=== PATIENT | male | born 1955 | race Caucasian/White ===

== ENCOUNTER 2019-07-15 07:44 | Day surgery (SDC) | payer BC ==
--- NOTE | 2019-07-14 15:58 | RAD REPORT ---
EXAM DESCRIPTION: RAD - Chest Pa And Lat (2 Views) - 07/14/2019 3:42 pm CLINICAL HISTORY: preop, patient pending cardiac catheterization COMPARISON: None. TECHNIQUE: PA and lateral views of the chest were obtained. FINDINGS: The lungs are clear. Heart size is normal and central vasculature is within normal limit s. No pleural effusion or pneumothorax seen. No acute bony finding noted. No aortic abnormality. IMPRESSION: No acute cardiopulmonary process.
[2019-07-14 16:41] LABS: Absolute Lymphocytes (CBC) 1.2 K/uL (0.7-4.9); Basophils % 0.5 % (0-1.3); Hematocrit 46.2 % (39.6-49.0); Lymphocytes % 22.4 % (15.3-44.8); MPV 10.5 fL (7.6-11.3)
[2019-07-14 16:52] LABS: Protime INR 1.01
[2019-07-14 17:04] LABS: Potassium 4.6 mmol/L (3.5-5.1)
[~2019-07-15 07:44] MED LIST: FENTANYL CITR 100 MCG/2 ML ONE; LIDOCAINE 1% MPF 30 ML VIAL ONE; MIDAZOLAM HCL 2 MG/2 ML INJ ONE
--- OUTSIDE RECORDS SUMMARY | 2019-07-15 07:46 | XMS REPORT | Clinical Summary ---
:1955 Author Organization [facility] Address [address] [place] [address] Care Team Providers Name Role Phone Pete Garber MD Primary Care Provider Allergies Active Allergy Reactions Severity Noted Date Comments No Known Drug Allergies 05/22/2016 Medications Medication Sig Dispensed Refills Start Date End Date Status amlodipine-benazepril Take 1 capsule by 0 Active (LOTREL 5-20) 5-20 mg mouth daily. per capsule simvastatin (ZOCOR) 40 Take 40 mg by 0 Active MG tablet mouth nightly. LORAZepam (ATIVAN) 1 Take 1 mg by mouth 0 Active MG tablet every 6 (six) hours as needed for anxiety. ALPRAZolam (XANAX) 1 Take 1 mg by mouth 0 Active MG tablet nightly as needed for anxiety. Active Problems Problem Noted Date Complete tear or right rotator cuff 05/31/2016 Shoulder pain 05/22/2016 Subacromial impingement 05/22/2016 Full thickness rotator cuff tear 05/22/2016 Family History Medical History Relation Name Comments Cancer Brother Cancer Father Diabetes Father No Known Problems Mother Relation Name Status Comments Brother Father Mother Social History Tobacco Use Types Packs/Day Years Used Date Never Smoker Alcohol Use Drinks/Week oz/Week Comments Yes 1 Glasses of wine Sex Assigned at Date Recorded Not on file Job Start Date Occupation Industry Not on file Not on file Not on file Travel History Travel Start Travel End No recent travel history available. Last Filed Vital Signs Not on file Plan of Treatment Health Maintenance Due Date Last Done Comments COLONOSCOPY SCREENING 2003 SHINGLES VACCINES (#1) 2003 65+ PNEUMOCOCCAL VACCINE (1 of 2 - PCV13) 2018 INFLUENZA VACCINE 06/11/2019 Results Not on fileafter 07/14/2018 Advance Directives For more information, please contact: [phone] Type Date Recorded Patient Manager Garden Explanation Advance Directives, Living Will and Medical Power of Is Project Manager
[2019-07-15] MEDS ORDERED: NA CHLORIDE 0.9% 500 ML ONE (07:52)
[2019-07-15] MEDS ORDERED: HEPA 1000U/500MLS 2,000 UNIT/1,000 ML BAG IV ONE (08:29)
[2019-07-15] MEDS ORDERED: LIDOCAINE 1% MPF 30 ML VIAL ONE (08:29)
[2019-07-15] MEDS ORDERED: NITROGLYCERIN 100 MCG/ML SYR (for cath lab use only) IV ONE (08:52)
[2019-07-15] MEDS ORDERED: HEPARIN 5000 UNIT/ML 1 ML VIAL ONE (08:52)
[2019-07-15] MEDS ORDERED: NICARDIPINE HCL 25 MG/10 ML IV ONE (08:52)
[2019-07-15] MEDS ORDERED: MIDAZOLAM HCL 2 MG/2 ML INJ ONE (08:52)
[2019-07-15] MEDS ORDERED: FENTANYL CITR 100 MCG/2 ML ONE (08:52)
[2019-07-15] MEDS ORDERED: NA CHLORIDE 0.9% 0 ML ONE (08:53)
[2019-07-15] MEDS ORDERED: ATROPINE SULF 1 MG/10 ML SYR IV ONE (08:53)
[2019-07-15] MEDS ORDERED: ACETYLCYST 20% 800 MG/4 ML VIAL PO ONE (10:30)
--- NOTE | 2019-07-15 19:52 | OP ---
Surgeon: Brian Davey MD Procedure: Left heart catheterization, coronary left ventricular angiography. Procedure Findings: The patient has left dominant coronary arteries. He has mild CAD. He has a non dominant right coronary, does not supply any blood to the left ventricle, has a 70% stenosis. This w as not treated with a stent. In the left coronary, there is plaque. The most serious one is about 2 0% in the circumflex trunk. There is mild lumen irregularity but no coronary stenosis of any signifi cance. His ejection fraction is mildly depressed. The visual estimate of the ejection fraction is a bout 40%, it was 58% on the nuclear study. We will carefully trace it and measure it and get an echo cardiogram before we really decide what his ejection fraction is, but he has mild cardiomyopathy. Hi s ejection fraction pressure is less than 50%. FABRIZIO Voice ID: [id number] Report ID: [id number]
--- NOTE | 2019-07-15 20:07 | OP ---
Surgeon: Brian Davey MD Procedure In Detail: The patient had an abnormal Cardiolite stress test. He was brought to the [facility] in a fasting state, sedated with Versed and fentanyl. Prepared and draped in usual ster ile fashion. Right radial approach was used. The radial artery was entered with a 21-gauge needle, cannulated with a 0.021 inch diameter guidewire, and Terumo radial sheath was placed. The radial rahul ktail was given consisting of nicardipine, heparin, and nitroglycerin. A TIG catheter was guided int o the ascending aorta using fluoroscopy and a short radius J-tip Glidewire. We angiogram left siu ry, right coronary, left ventricle, all with the TIG catheter. With a decision was made not to do an y intervention, the catheter was removed over a wire. The sheath was flushed, removed, and the arter iotomy closed with a large TR band. Estimated Blood Loss: 5 mL. Complications From The Procedure: None. Locker Room Attendant: Anil Fleming. ASY/JOSE Voice ID: [id number] Report ID: [id number]
== END 2019-07-15 12:17 | disposition home or self-care (01) ==
LOC: CCL 07:44
PROVIDERS: ATTEND Internal Medicine
DX: I25.118 Atherosclerotic heart disease of native coronary artery with other forms of angina pectoris (principal); I42.9 Cardiomyopathy, unspecified; I10 Essential (primary) hypertension; E78.2 Mixed hyperlipidemia; Z82.49 Family history of ischemic heart disease and other diseases of the circulatory system
CPT/HCPCS: 85025; 80048; 36415; 85610; 85730; 71046; 93458; C1893; J1644; J2250; J3010; J0583